=== PATIENT | male | born 1975 | race Caucasian/White ===

== ENCOUNTER 2016-11-20 16:16 | Outpatient (CLI) | payer OTHER ==
--- NOTE | 2016-11-21 08:56 | XRAY Report ---
TWO-VIEW LUMBAR SPINE: 11/20/2016 CLINICAL INDICATION: Low back ache. FINDINGS: Frontal and lateral views of the lumbar spine demonstrate normal height and alignment of t he lumbar vertebral bodies. Minimal degenerative disk disease is seen, with anterior osteophytes. IMPRESSION: MINIMAL DEGENERATIVE CHANGES. NO EVIDENCE OF FRACTURE. JOB #: [id number] EXT JOB #:[id number]
== END 2016-11-20 16:17 | disposition home or self-care (01) ==
LOC: DI 16:16
PROVIDERS: ATTEND Family Medicine
DX: M51.36 Other intervertebral disc degeneration, lumbar region (principal); M25.78 Osteophyte, vertebrae
CPT/HCPCS: 72100

== ENCOUNTER 2017-04-12 16:41 | Outpatient (CLI) | payer OTHER ==
--- NOTE | 2017-04-13 11:22 | MRI Report ---
EXAM: RIGHT KNEE MRI WITHOUT CONTRAST EXAM DATE: 04/12/2017 05:37 PM. CLINICAL HISTORY: Posterior right knee pain for 1 to 2 years. No history of trauma. Prior cartilage s urgery 2008. Metallic foreign body in the soft tissues. COMPARISON: Prior MRI 2009, x-ray 2008. TECHNIQUE: Multiplanar, multisequence T1-weighted and fluid-sensitive sequences of the knee without c ontrast. Other: None. FINDINGS: There is a 2-3 mm radiopaque foreign body in the posterior soft tissues of the knee, with artifact. Bones: There are no visible fractures or contusions. There is metallic artifact in the posteromedial aspect of the medial femoral condyle, which obscures marrow signal intensity. There are small subchon dral cysts in the medial tibial condyle. Medial compartment osteophytes. Articular Cartilage: Mild thinning of the hyaline cartilage of the medial compartment. The lateral an d patellofemoral compartments appear normal. Medial Meniscus: Oblique undersurface tear of the body and junction of the body and posterior horn of the medial meniscus with the fragment flipped into the medial recess. There are 2 associated posteri or parameniscal cysts, one measuring 12 x 5 mm, and the other 7 x 9 mm. Lateral Meniscus: The lateral meniscus is intact. Cruciate Ligaments: The anterior and posterior cruciate ligaments are intact. Collateral Ligaments: The medial collateral and lateral collateral ligamentous structures are intact. Tendons: The quadriceps, patellar, semimembranosus, and popliteus tendons are unremarkable. Musculature: No edema or fatty atrophy. Other: Small joint effusion. There is a 9 x 7 mm loose body in the joint space between the patella an d femoral trochlea. No popliteal cyst. No loose bodies. The medial and lateral retinacula are intact. The subcutaneous tissues and fat pads are unremarkable. IMPRESSION: 1. Tear of the medial meniscus was present on the prior study, although the fragment appears more med ially displaced. The parameniscal cysts have evolved since the prior study. 2. Hyaline cartilage thinning in the medial compartment with associated osteophyte formation has wors ened since the prior study. 3. Small joint effusion with a loose body. [facility] MUSCULOSKELETAL RADIOLOGY SECTION Referring Provider Line: [phone] SITE ID: [id number]
== END 2017-04-12 16:42 | disposition home or self-care (01) ==
LOC: DI 16:41
PROVIDERS: ATTEND Orthopaedic Surgery
DX: M23.203 Derangement of unspecified medial meniscus due to old tear or injury, right knee (principal); M23.41 Loose body in knee, right knee; M25.461 Effusion, right knee

== ENCOUNTER 2020-05-17 17:21 | Outpatient (CLI) | payer BC | END 2020-05-17 17:22 | disposition home or self-care (01) | LOC: COV 17:21 | PROVIDERS: ATTEND Family Medicine | DX: Z20.822 Contact with and (suspected) exposure to COVID-19 (principal) ==

== ENCOUNTER 2020-09-21 17:29 | Emergency (ER) | payer BC ==
[2020-09-21 17:38] VITALS: BP 168/108
--- OUTSIDE RECORDS SUMMARY | 2020-09-21 17:43 | EXTERNAL MEDICAL SUMMARY RPT | Continuity of Care Document ---
:1975 Demographics Phone Unavailable Preferred Language Unknown Marital Status Unknown Mu-Ism Affiliation Unknown Race Unknown Ethnic Group Unknown Author Organization [facility] Address [address] [place] [address] Phone Allergies Encounters Medications Problems Results
--- NOTE | 2020-09-21 18:00 | ED Physician Documentation ---
PD HPI OPHTHO - Stated complaint Stated Complaint: RT EYE PX/X4 WEEKS - Chief complaint Chief Complaint: Heent - History obtained from History obtained from: Patient - History of Present Illness Timing - onset: How many days ago (has had some swelling in eyelid for about 4 weeks, but not tender nor red. has had couple days of tender, redness, more swelling. No drainage.) Timing - duration: Days Timing - details: Abrupt onset, Still present Quality / character: Aching Associated symptoms: Redness, Swelling. No: Discharge, FB sensation Contributing factors: No: Exposed to conjunctivitis, FB, Wears contacts Similar symptoms before: Has not had sx before Review of Systems Constitutional: denies: Fever, Chills Eyes: denies: Decreased vision, Photophobia, Discharge, Irritation Nose: denies: Rhinorrhea / runny nose, Congestion Throat: denies: Sore throat Respiratory: denies: Cough Skin: denies: Rash, Lesions PD PAST MEDICAL HISTORY - Past Medical History Cardiovascular: None Respiratory: None - Present Medications Home Medications: Ambulatory Orders Medication Instructions Recorded Confirmed Doxycycline Hyclate 100 mg PO BID #14 09/21/20 Erythromycin Base [Erythromycin 1 applic OP QID #3.5 gm 09/21/20 Ophthalmic Ointment] Lisinopril [Zestril] 2 tab PO DAILY 09/21/20 09/21/20 amLODIPine [Norvasc] 5 mg PO DAILY 09/21/20 09/21/20 - Allergies Allergies/Adverse Reactions: Allergies Allergy/AdvReac Type Severity Reaction Status Date / Time No Known Drug Allergies Allergy Verified 09/21/20 17:38 PD ED PE NORMAL - Vitals Vital signs reviewed: Yes - General General: Alert and oriented X 3, No acute distress, Well developed/nourished - HEENT HEENT: PERRL, EOMI, Ears normal, Moist mucous membranes, Pharynx benign, Other (right upper eyelid with redness and swelling without fluctuance at lid margin. Small white swelling underside of lid about 2 mm. I would not want to try incising that area though. ) - Neck Neck: Supple, no meningeal sign, No adenopathy - Neuro Neuro: Alert and oriented X 3, No motor deficit, Normal speech PD ED PE EXPANDED - Eyes Eyes: Anterior chambers clear. No: Fluorescein uptake Results - Vitals Vitals: Oxygen O2 Source Room air PD MEDICAL DECISION MAKING - ED course Complexity details: considered differential (stye with infection and also now eyelid cellulitis appearance. ), d/w patient Departure - Departure Disposition: 01 Home, Self Care Clinical Impression: Cellulitis of right eyelid Infected chalazion Qualifiers: Laterality: right Eyelid: upper Qualified Code(s): H00.021 - Hordeolum internum right upper eyelid Condition: Stable Record reviewed to determine appropriate education?: Yes Instructions: ED Meibomitis Follow-Up: Javid Grubbs MD [Primary Care Provider] - Prescriptions: Doxycycline Hyclate 100 mg PO BID #14 Erythromycin Base [Erythromycin Ophthalmic Ointment] 1 applic OP QID #3.5 gm Comments: warm moist compresses several times daily to eyelid, followed by arythromycin ointment to eye/lid. Also Doxycycline twice daily for a week for the infection. I would anticipate improvement over 2-3 days. Recheck if not better in that timeframe. Discharge Date/Time: 09/21/20 18:59
[2020-09-21] MEDS ORDERED: PROPARACAINE 0.5% OPHTH DROPS 15 ML RIGHTEYE STA (18:08)
[2020-09-21] MEDS ORDERED: ERYTHROMYCIN OPHTH OINT 1 GM TUBE RIGHTEYE STA (18:30)
[2020-09-21] MEDS ORDERED: DOXYCYCLINE 100 MG TABLET PO STA (18:30)
== END 2020-09-21 18:59 | disposition home or self-care (01) ==
LOC: ED 17:29
DX: H00.021 Hordeolum internum right upper eyelid (principal); H00.031 Abscess of right upper eyelid
CPT/HCPCS: 99282; 99283; A9270; J3490

== ENCOUNTER 2022-02-23 10:21 | Emergency (ER) | payer BC ==
[2022-02-23] MEDS ORDERED: KETOROLAC 30 MG/ML VIAL IVP STA (11:45)
[2022-02-23] MEDS ORDERED: SODIUM CHLORIDE 0.9% 1,000 ML IV STA (11:45)
[2022-02-23 12:06] LABS: BASOPHILS % (AUTO) 0.4 %; EOSINOPHILS # (AUTO) 0.4 10^3/uL (0.0-0.7); EOSINOPHILS % (AUTO) 3.6 %; HCT - HEMATOCRIT 49.3 % (42.0-52.0); HGB - HEMOGLOBIN 16.8 g/dL (14.0-18.0); LYMPHOCYTES # (AUTO) 1.8 10^3/uL (1.5-3.5); LYMPHOCYTES % (AUTO) 18.8 %; MEAN CORPUSCULAR HGB CONC 34.1 g/dL (32.0-36.0); MEAN PLATELET VOLUME 10.6 fL (7.4-11.4); MONOCYTES # (AUTO) 0.6 10^3/uL (0.0-1.0); MONOCYTES % (AUTO) 6.7 %; NEUTROPHILS # (AUTO) 6.5 10^3/uL (1.5-6.6); PLT - PLATELET COUNT 207 10^3/uL (130-450); RED CELL DISTRIBUTION WIDTH 12.2 % (12.0-15.0); WHITE BLOOD COUNT 9.6 x10^3/uL (4.8-10.8)
[2022-02-23 12:17] LABS: ALBUMIN 4.5 g/dL (3.2-5.5); ALBUMIN/GLOBULIN RATIO 1.3 (1.0-2.2); BILIRUBIN,TOTAL 0.5 mg/dL (0.2-1.0); CALCIUM 9.7 mg/dL (8.5-10.3); CREATININE 0.9 mg/dL (0.6-1.2); POTASSIUM 3.8 mmol/L (3.5-5.0); TOTAL PROTEIN 7.9 g/dL (6.7-8.2)
[2022-02-23 12:30] LABS: RAPID STREP SCREEN Negative (Negative)
--- NOTE | 2022-02-23 12:46 | XRAY Report ---
PROCEDURE: Chest 1 View X-Ray INDICATIONS: cough/dizzy TECHNIQUE: One view of the chest was acquired. COMPARISON: None FINDINGS: Surgical changes and devices: None. Lungs and pleura: No pleural effusions or pneumothorax. Lungs are clear. Mediastinum: Mediastinal contours appear normal. Heart size is normal. Bones and chest wall: No suspicious bony lesions. Overlying soft tissues appear unremarkable. IMPRESSION: No acute pulmonary process. Reviewed by: Tere Price MD on 02/23/2022 12:45 PM PDT Approved by: Tere Price MD on 02/23/2022 12:45 PM PDT Station ID: [id number]
--- NOTE | 2022-02-23 12:55 | ED Physician Documentation ---
PD HPI URI - Stated complaint Stated Complaint: C+ CHILLS/HEADACHE - Chief complaint Chief Complaint: Resp - History obtained from History obtained from: Patient - Additional information Additional information: Patient is 47 yo M who tested positive for Covid 10 days ago (Feb 14) with symptoms starting that day. He reports still feeling fatigued, dizzy at times (with standing, resolves after 1 minute), wanting to sleep more, chills, and at times a sore throat. He has tried various OTC medications without significant improvement. He denies CP, SOB, cough, headache. Review of Systems Constitutional: reports: Chills Throat: denies: Sore throat Cardiac: denies: Chest pain / pressure Respiratory: denies: Dyspnea GI: denies: Abdominal Pain, Vomiting : reports: Dysuria Musculoskeletal: denies: Back pain Neurologic: reports: Generalized weakness PD PAST MEDICAL HISTORY - Past Medical History Past Medical History: Yes Cardiovascular: Hypertension Respiratory: None Neuro: None Endocrine/Autoimmune: None GI: Hemorrhoids : None, Other HEENT: None Psych: None Derm: None - Past Surgical History Past Surgical History: Yes Ortho: Other - Present Medications Home Medications: Ambulatory Orders Medication Instructions Recorded Confirmed Doxycycline Hyclate 100 mg PO BID #14 09/21/20 Erythromycin Base [Erythromycin 1 applic OP QID #3.5 gm 09/21/20 Ophthalmic Ointment] Lisinopril [Zestril] 2 tab PO DAILY 09/21/20 09/21/20 amLODIPine [Norvasc] 5 mg PO DAILY 09/21/20 09/21/20 - Allergies Allergies/Adverse Reactions: Allergies Allergy/AdvReac Type Severity Reaction Status Date / Time No Known Drug Allergies Allergy Verified 02/23/22 10:29 - Social History Does the pt smoke?: No Smoking Status: Never smoker PD ED PE NORMAL - General General: Alert and oriented X 3, No acute distress, Well developed/nourished - HEENT HEENT: Atraumatic, Moist mucous membranes, Pharynx benign (No oral swelling/exudate/erythema) - Neck Neck: Supple, no meningeal sign - Cardiac Cardiac: RRR, Strong equal pulses - Respiratory Respiratory: No respiratory distress, Clear bilaterally - Abdomen Abdomen: Soft, Non tender - Derm Derm: Warm and dry - Extremities Extremities: No edema - Neuro Neuro: Alert and oriented X 3, No motor deficit, No sensory deficit, Normal speech, Other (Normal gait) Results - Vitals Vitals: Vital Signs - 24 hr 02/23/22 02/23/22 02/23/22 12:13 12:52 13:09 Temperature 37.0 C Heart Rate 72 73 Respiratory 18 18 Rate Blood Pressure 150/99 H 101/44 L O2 Saturation 97 98 Oxygen O2 Source Room air - Labs Labs: Laboratory Tests 02/23/22 02/23/22 02/23/22 11:55 11:55 12:02 WBC 9.6 RBC 5.80 Hgb 16.8 Hct 49.3 MCV 85.0 MCH 29.0 MCHC 34.1 RDW 12.2 Plt Count 207 MPV 10.6 Neut # (Auto) 6.5 Lymph # (Auto) 1.8 [facility] # (Auto) 0.6 Eos # (Auto) 0.4 Baso # (Auto) 0.0 Absolute Nucleated RBC 0.00 Nucleated RBC % 0.0 Sodium 141 Potassium 3.8 Chloride 102 Carbon Dioxide 30 Anion Gap 9.0 BUN 12 Creatinine 0.9 Estimated GFR (MDRD) 91 Glucose 117 H Calcium 9.7 Total Bilirubin 0.5 AST 25 ALT 50 Alkaline Phosphatase 77 Total Protein 7.9 Albumin 4.5 Globulin 3.4 Albumin/Globulin Ratio 1.3 Group A Strep Rapid Negative PD MEDICAL DECISION MAKING - ED course Complexity details: reviewed results, re-evaluated patient ED course: Pt with recent Covid infection, still feeling weak and at times dizzy. VSS. Clinically well appearing. Labs reassuring. Chest xray clear and strep negative. Pt feeling better after IV fluids. Encouraged continued supportive care and close follow up with PCP. Aware of concerning symptoms to return for. Departure - Departure Disposition: 01 Home, Self Care Clinical Impression: Viral infection Condition: Stable Instructions: ED Viral Syndrome Comments: You have recently tested positive for COVID.It is possible that you also have an additional viral infection as many viruses are going around currently. Your labs are reassuring and your chest x-ray is negative for pneumonia. Please continue with getting plenty of rest, I staying hydrated and have close follow- up with your primary care doctor. If you have any worsening symptoms please return to the emergency department. Discharge Date/Time: 02/23/22 13:09
[2022-02-23 13:10] VITALS: BP 101/44
== END 2022-02-23 13:09 | disposition home or self-care (01) ==
LOC: ED 10:21
DX: B34.9 Viral infection, unspecified (principal); Z20.822 Contact with and (suspected) exposure to COVID-19
CPT/HCPCS: 36415; 80053; 85025; 87070; 87430; 96374; 99282